=== PATIENT | female | born 1965 | race Caucasian/White ===

== ENCOUNTER 2016-08-27 21:25 | Inpatient (IN) | payer MEDICAID, OTHER ==
[2016-08-27 22:14] LABS: BASO % 0.3 % (0.0-2.0); EOS # 0.1 K/uL (0.0-0.7); EOS % 1.9 % (0.0-4.0); HEMOGLOBIN 12.7 g/dL (11.0-16.0); LYMPH # 3.2 K/uL (1.0-4.3); LYMPH % 49.4 % (20.0-40.0); MEAN CELL VOLUME 91.4 fL (81.0-99.0); MEAN CORPUSCULAR HEMOGLOBIN 30.5 pg (27.0-31.0); MEAN CORPUSCULAR HGB CONC 33.3 g/dL (33.0-37.0); MONO # 0.7 K/uL (0.0-0.8); NEUT # 2.5 K/uL (1.8-7.0); NEUT % 38.4 % (50.0-75.0); NRBC % 0.1 % (0.0-2.0); RBC 4.17 Mil/uL (3.80-5.20); RED CELL DISTRIBUTION WIDTH 13.1 % (11.5-14.5); WHITE BLOOD COUNT 6.5 K/uL (4.8-10.8)
[2016-08-27 22:20] LABS: HCG,QUALITATIVE URINE NEGATIVE (NEGATIVE)
--- NOTE | 2016-08-27 22:20 | C.PDOC ---
History Of Present Illness 51 year old female with a Hx of hyperthyroidism, hypertensionwho presents to the ER with a complaint of palpitations and chest painthat began this afternoon. Denies fever or other physical complaints. Time Seen by Provider: 08/27/16 21:48 Chief Complaint (Nursing): Palpitations History Per: Patient History/Exam Limitations: no limitations Onset/Duration Of Symptoms: Hrs Current Symptoms Are (Timing): Still Present Associated Symptoms: denies: Chest Pain, Dyspnea, Dizziness, Headache Quality Of Symptoms: Rapid Heart Rate Exacerbating Factor(s): Pos: None Recent travel outside of the [place]: No Past Medical History Reviewed: Historical Data, Nursing Documentation, Vital Signs Vital Signs: Last Vital Signs Temp 98 F 08/30/16 07:00 Pulse 69 08/30/16 07:00 Resp 20 08/30/16 07:00 BP 141/88 08/30/16 07:00 Pulse Ox 97 08/30/16 07:00 - Medical History PMH: HTN, Hyperthyroidism Surgical History: No Surg Hx Family History: States: Unknown Family Hx - Social History Hx Tobacco Use: No Hx Alcohol Use: No Hx Substance Use: No - Immunization History Hx Tetanus Toxoid Vaccination: Yes Hx Influenza Vaccination: Yes (2016) Hx Pneumococcal Vaccination: No Review Of Systems Except As Marked, All Systems Reviewed And Found Negative. Constitutional: Negative for: Fever Cardiovascular: Positive for: Palpitations. Negative for: Chest Pain Respiratory: Negative for: Cough, Shortness of Breath, Wheezing Gastrointestinal: Negative for: Vomiting, Abdominal Pain Neurological: Negative for: Weakness, Numbness Physical Exam - Physical Exam Appears: Non-toxic, No Acute Distress Skin: Normal Color, Warm, Dry Head: Atraumatic, Normacephalic Oral Mucosa: Moist Chest: Symmetrical, No Tenderness Cardiovascular: Rhythm Regular, No Murmur Respiratory: Normal Breath Sounds, No Rales, No Rhonchi, No Wheezing Gastrointestinal/Abdominal: Soft, No Tenderness Neurological/Psych: Oriented x3, Normal Speech, Normal Cognition ED Course And Treatment - Laboratory Results Result Diagrams: 08/30/16 07:08 08/30/16 07:08 O2 Sat by Pulse Oximetry: 100 (Room air) Pulse Ox Interpretation: Normal Medical Decision Making Medical Decision Making: Impression: 51 year old female with palpitationsand chest pain - r/o acs. Plan: * EKG * Blood work * CXR * Urinalysis * * 1200: labs unremakrable. as pt presetns < 6 hrs from onset, will obs for cp. Disposition - Disposition Disposition: HOSPITALIZED Disposition Time: 11:00 Condition: STABLE - Clinical Impression Clinical Impression: Palpitations, Chest pain - Scribe Statement The provider has reviewed the documentation as recorded by the Scribe Jonas Euceda All medical record entries made by the Scribe were at my direction and personally dictated by me. I have reviewed the chart and agree that the record accurately reflects my personal performance of the history, physical exam, medical decision making, and the department course for this patient. I have also personally directed, reviewed, and agree with the discharge instructions and disposition. Decision To Admit - Pt Status Changed To: Hospital Disposition Of: Observation - . Bed Request Type: Telemetry Admitting Physician: Sam Quintero Patient Diagnosis: Palpitations, Chest pain
[2016-08-27 22:22] LABS: SQUAMOUS EPITHIAL 1 /hpf (0-5); URINE BILIRUBIN NEGATIVE (NEGATIVE); URINE BLOOD NEGATIVE (NEGATIVE); URINE CLARITY Clear (Clear); URINE COLOR Yellow (YELLOW); URINE GLUCOSE (UA) NORMAL (Normal); URINE LEUKOCYTE ESTERASE NEG Leu/uL (Negative); URINE NITRATE NEGATIVE (NEGATIVE); URINE PROTEIN NEGATIVE (NEGATIVE); URINE UROBILINOGEN NORMAL mg/dL (0.2-1.0)
[2016-08-27 22:23] LABS: ALBUMIN 3.6 g/dL (3.5-5.0)
[2016-08-27 22:26] LABS: AST/SGOT 26 U/L (14-36); BLOOD UREA NITROGEN 10 mg/dL (7-17); GFR AFRICAN-AMERICAN > 60; GFR NON-AFRICAN AMERICAN > 60
[2016-08-27 22:27] LABS: ALT/SGPT 27 U/L (9-52); CALCIUM 8.8 mg/dl (8.6-10.4)
[2016-08-27 22:40] LABS: PARTIAL THROMBOPLASTIN TIME 29 SECONDS (21-34); PROTHROMBIN TIME 11.3 SECONDS (9.7-12.2)
[2016-08-27 22:41] LABS: D DIMER < 200 ng/mlDDU (0-243)
[2016-08-28] MEDS ORDERED: Enalaprilat 2.5 MG/2 ML IV ONE (00:59)
--- NOTE | 2016-08-28 07:05 | RAD ---
PROCEDURE: CHEST RADIOGRAPH, 1 VIEW HISTORY: chest pain COMPARISON: 06/29/2015 FINDINGS: LUNGS: Mild venous congestion. Prominent productive change at the ends of the 1st ribs. Bibasilar breast and nipple shadows. Right hilar prominence. PLEURA: No pneumothorax or pleural fluid seen. CARDIOVASCULAR: Normal. OSSEOUS STRUCTURES: Degenerative changes. VISUALIZED UPPER ABDOMEN: Normal. OTHER FINDINGS: None. IMPRESSION: Mild venous congestion. Prominent productive change at the ends of the 1st ribs. Bibasilar breast and nipple shadows. Right hilar prominence.
[2016-08-28 07:24] LABS: CK-MB 0.45 ng/mL (0.0-3.38)
[2016-08-28] MEDS: Pantoprazole 40 mg EC Tab PO SCH (09:55)
[2016-08-28] MEDS: Enoxaparin 40 mg Syringe SC SCH (09:55)
[2016-08-28] MEDS ORDERED: Pneumococcal 23-Valent Vaccine IM ONE (10:00)
[2016-08-28 12:04] LABS: CK-MB 0.65 ng/mL (0.0-3.38)
--- NOTE | 2016-08-28 14:59 | CP.PCM.HP ---
Past Patient History - Past Social History Smoking Status: Never Smoked - CARDIAC Hx Hypertension: No - ENDOCRINE/METABOLIC Hx Hyperthyroidism: Yes - MUSCULOSKELETAL/RHEUMATOLOGICAL Hx Falls: No - GASTROINTESTINAL Hx Constipation: Yes - GENITOURINARY/GYNECOLOGICAL Other/Comment: hysterectomy 1998 - PSYCHIATRIC Hx Substance Use: No - SURGICAL HISTORY Hx Hysterectomy: Yes - ANESTHESIA Hx Anesthesia: Yes Hx Anesthesia Reactions: No Meds Allergies/Adverse Reactions: Allergies Allergy/AdvReac Type Severity Reaction Status Date / Time No Known Allergies Allergy Verified 12/23/14 09:04 Physical Exam - Constitutional Appears: Well - Head Exam Head Exam: ATRAUMATIC, NORMAL INSPECTION, NORMOCEPHALIC - Eye Exam Eye Exam: EOMI, Normal appearance, PERRL Pupil Exam: NORMAL ACCOMODATION, PERRL - ENT Exam ENT Exam: Mucous Membranes Moist, Normal Exam - Neck Exam Neck exam: Positive for: Normal Inspection - Respiratory Exam Respiratory Exam: Decreased Breath Sounds - Cardiovascular Exam Cardiovascular Exam: REGULAR RHYTHM, +S1, +S2 - GI/Abdominal Exam GI & Abdominal Exam: Diminished Bowel Sounds, Soft - Rectal Exam Rectal Exam: Deferred Results - Vital Signs Recent Vital Signs: Last Vital Signs Temp 98.2 F 08/28/16 08:52 Pulse 68 08/28/16 11:41 Resp 20 08/28/16 08:52 BP 136/89 08/28/16 08:52 Pulse Ox 97 08/28/16 08:52 - Labs Result Diagrams: 08/27/16 22:09 08/27/16 22:09 Labs: Laboratory Results - last 24 hr 08/28/16 08/28/16 06:59 11:33 Total Creatine Kinase 72 73 CK-MB (Mass) 0.45 0.65 Troponin I, Quant < 0.0120 < 0.0120 TSH 3rd Generation < 0.02 L Assessment & Plan - Assessment and Plan (Free Text) Plan: Aspirin Lovenox Protonix Continue home medication Cardiology follow-up Cardiac enzymes every 8 Increase methimazole to 10 mg p.o. twice daily Free T4 T3 tomorrow morning Endo as needed Patient advised to see black mill operator as an outpatient for possible radio iodine uptake patient is already well known case of hypothyroidism
--- NOTE | 2016-08-28 23:48 | CP.PCM.CON ---
History of Present Illness - History of Present Illness History of Present Illness: Vikki Murry 51-year-old female with past medical history significant for hyperthyroidism and hypertension who presented with complaints of palpitations which started on Monday afternoon around 3:00 pm . According to the patient she took her dose of propanolol but her symptoms got progressively worse for which she came to the ER. According to the patient she has been on propranolol and thyroid medications for the last 8-9 years. She was recently prescribed diuretics by her scrum project manager 1 month ago, but she did not take it. She also has ongoing worsening lower extremity swelling which have been there for the last 7 years worse at the end of the day. 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 According to the patient she denied having any chest pains. She does have 1- 2 pillow orthopnea and does have NYHA functional class I to II dyspnea. She noticed her symptoms of dyspnea on exertion got worse over the course of last day. Review of Systems - Constitutional Constitutional: Fatigue - EENT Eyes: As Per HPI Ears: As Per HPI Nose/Mouth/Throat: As Per HPI - Cardiovascular Cardiovascular: Dyspnea on Exertion, Edema, Leg Edema, Orthopnea, Rapid Heart Rate - Respiratory Respiratory: Dyspnea on Exertion - Gastrointestinal Gastrointestinal: As Per HPI - Genitourinary Genitourinary: As Per HPI - Musculoskeletal Musculoskeletal: As Per HPI - Integumentary Integumentary: As Per HPI - Neurological Neurological: As Per HPI - Psychiatric Psychiatric: As Per HPI - Endocrine Endocrine: Heat Intolorance, Palpitations Past Patient History - Past Medical History & Family History Past Medical History?: Yes Pertinent Family History: She has history of premature coronary artery disease in the family mom had SD at the age of 60 and dad had SD at the age of 42. 9 siblings out of which 2 are brother from motor vehicle accident and sister had HIV. Out of the other 7 siblings will be one sister has history of murmurs. She is with 4 kids in the age of 30 [id number] and 23. - Past Social History Smoking Status: Never Smoked Alcohol: None Drugs: Denies Home Situation {Lives}: With Family - CARDIAC Hx Cardiac Disorders: No Hx Angina: No Hx Atrial Fibrillation: No Hx Cardia Arrhythmia: Yes Hx Circulatory Problems: No Hx Congestive Heart Failure: No Hx Heart Attack: No Hx Hypertension: No Hx Hypotension: No Hx Internal Defibrillator: No Hx Mitral Valve Prolapse: No Hx Pacemaker: No Hx Peripheral Edema: Yes Hx Peripheral Vascular Disease: No - PULMONARY Hx Respiratory Disorders: No Hx Asthma: No Hx Bronchitis: No Hx Lung Cancer: No - ENDOCRINE/METABOLIC Hx Endocrine Disorders: Yes Hx Hyperthyroidism: Yes - MUSCULOSKELETAL/RHEUMATOLOGICAL Hx Falls: No - GASTROINTESTINAL Hx Constipation: Yes - GENITOURINARY/GYNECOLOGICAL Other/Comment: hysterectomy 1999 - PSYCHIATRIC Hx Substance Use: No - SURGICAL HISTORY Hx Hysterectomy: Yes - ANESTHESIA Hx Anesthesia: Yes Hx Anesthesia Reactions: No Meds Allergies/Adverse Reactions: Allergies Allergy/AdvReac Type Severity Reaction Status Date / Time No Known Allergies Allergy Verified 12/23/14 09:04 - Medications Medications: Current Medications Aspirin (Aspirin) 325 mg PO DAILY [facility] Last Admin: 08/28/16 09:55 Dose: 325 mg Enoxaparin Sodium (Lovenox) 40 mg SC DAILY [facility] Last Admin: 08/28/16 09:55 Dose: 40 mg Methimazole (Tapazole) 10 mg PO BID [facility] Last Admin: 08/28/16 17:50 Dose: 10 mg Pantoprazole Sodium (Protonix Ec Tab) 40 mg PO DAILY [facility] Last Admin: 08/28/16 09:55 Dose: 40 mg Propranolol HCl (Inderal) 20 mg PO TID [facility] Last Admin: 08/28/16 17:49 Dose: 20 mg Physical Exam - Constitutional Appears: Well, No Acute Distress - Head Exam Head Exam: ATRAUMATIC, NORMAL INSPECTION, NORMOCEPHALIC - Eye Exam Eye Exam: EOMI, Normal appearance Pupil Exam: NORMAL ACCOMODATION, PERRL - ENT Exam ENT Exam: Mucous Membranes Moist, Normal Exam - Neck Exam Neck exam: Positive for: Normal Inspection - Respiratory Exam Respiratory Exam: Clear to Auscultation Bilateral, NORMAL BREATHING PATTERN - Cardiovascular Exam Cardiovascular Exam: Tachycardia, REGULAR RHYTHM, +S1, +S2, Systolic Murmur - GI/Abdominal Exam GI & Abdominal Exam: Normal Bowel Sounds, Soft - Rectal Exam Rectal Exam: Deferred - Extremities Exam Extremities exam: Positive for: normal capillary refill, normal inspection - Back Exam Back exam: NORMAL INSPECTION - Neurological Exam Neurological exam: Alert, CN II-XII Intact, Oriented x3 - Psychiatric Exam Psychiatric exam: Normal Affect, Normal Mood - Skin Skin Exam: Normal Color, Warm Results - Vital Signs Recent Vital Signs: Last Vital Signs Temp 98 F 08/28/16 16:16 Pulse 61 08/28/16 16:16 Resp 20 08/28/16 16:16 BP 143/85 08/28/16 16:16 Pulse Ox 99 08/28/16 16:16 - Labs Result Diagrams: 08/27/16 22:09 08/27/16 22:09 Labs: Laboratory Results - last 24 hr 08/28/16 08/28/16 06:59 11:33 Total Creatine Kinase 72 73 CK-MB (Mass) 0.45 0.65 Troponin I, Quant < 0.0120 < 0.0120 TSH 3rd Generation < 0.02 L Assessment & Plan (1) Palpitation Assessment and Plan: Etiology of palpitations question secondary to hyperthyroidism versus some underlying atrial arrhythmia. We will continue to monitor patient on telemetry. Continue We will continue home dose of propanolol 20 mg p.o. 3 times daily. Status: Acute (2) SOB (shortness of breath) Assessment and Plan: Etiology of shortness of breath question secondary to underlying diastolic CHF in the setting of tachycardia. Will check echocardiogram. Status: Acute (3) HTN (hypertension) Assessment and Plan: Blood pressure mildly elevated. Continue her on home dose of propranolol. Depending on patient's blood pressure trend will decide if she would benefit from any further medications. Status: Acute (4) Hyperthyroidism Assessment and Plan: Check TSH free T3 and T4. We will also check fasting lipid profile. Status: Acute
[2016-08-29 06:45] LABS: B-TYPE NATRIURETIC PEPTIDE 289 pg/mL (0-450)
[2016-08-29 06:52] LABS: T4 13.6 ug/dL (5.5-11.0)
[2016-08-29 07:06] LABS: T3 2.76 nmol/L (1.49-2.60)
[2016-08-29 08:44] VITALS: RESP 20
[2016-08-29] MEDS: Enoxaparin 40 mg Syringe SC SCH (10:03)
[2016-08-29] MEDS: Pantoprazole 40 mg EC Tab PO SCH (10:03)
[2016-08-29 11:59] LABS: MEAN CELL VOLUME 90.6 fL (81.0-99.0); MEAN CORPUSCULAR HEMOGLOBIN 30.5 pg (27.0-31.0); MEAN CORPUSCULAR HGB CONC 33.7 g/dL (33.0-37.0); MEAN PLATELET VOLUME 9.4 fL (7.2-11.7); RBC 4.59 Mil/uL (3.80-5.20); RED CELL DISTRIBUTION WIDTH 13.1 % (11.5-14.5); WHITE BLOOD COUNT 5.8 K/uL (4.8-10.8)
[2016-08-29 12:07] LABS: ALBUMIN 3.6 g/dL (3.5-5.0)
[2016-08-29 12:10] LABS: GFR AFRICAN-AMERICAN > 60; GFR NON-AFRICAN AMERICAN > 60
[2016-08-29 12:11] LABS: ALB/GLOB RATIO 1.1 (1.0-2.1); ALT/SGPT 32 U/L (9-52); AST/SGOT 26 U/L (14-36); BLOOD UREA NITROGEN 7 mg/dL (7-17); CALCIUM 9.3 mg/dl (8.6-10.4)
--- NOTE | 2016-08-29 13:37 | CARD ---
APPROVED REPORT EKG Measurement Heart [id number] <Conclusion> Normal sinus rhythm Normal ECG
--- NOTE | 2016-08-29 15:26 | CP.PCM.PN ---
Subjective - Date & Time of Evaluation Date of Evaluation: 08/29/16 Time of Evaluation: 13:00 - Subjective Subjective: clinically same Objective - Vital Signs/Intake and Output Vital Signs (last 24 hours): Temp Pulse Resp BP Pulse Ox 98.4 F 66 20 162/95 H 99 08/29/16 15:13 08/29/16 15:13 08/29/16 15:13 08/29/16 15:13 08/29/16 15:13 - Medications Medications: Current Medications Aspirin (Aspirin) 325 mg PO DAILY [facility] Last Admin: 08/29/16 10:03 Dose: 325 mg Enoxaparin Sodium (Lovenox) 40 mg SC DAILY [facility] Last Admin: 08/29/16 10:03 Dose: 40 mg Methimazole (Tapazole) 10 mg PO BID [facility] Last Admin: 08/29/16 10:03 Dose: 10 mg Pantoprazole Sodium (Protonix Ec Tab) 40 mg PO DAILY [facility] Last Admin: 08/29/16 10:03 Dose: 40 mg Propranolol HCl (Inderal) 20 mg PO TID [facility] Last Admin: 08/29/16 14:19 Dose: 20 mg - Labs Labs: 08/29/16 11:49 08/29/16 11:49 PT 11.3 SECONDS (9.7-12.2) 08/27/16 22:25 INR 1.0 08/27/16 22:25 APTT 29 SECONDS (21-34) 08/27/16 22:25 - Constitutional Appears: Well - Head Exam Head Exam: ATRAUMATIC, NORMAL INSPECTION, NORMOCEPHALIC - Eye Exam Eye Exam: EOMI, Normal appearance, PERRL Pupil Exam: NORMAL ACCOMODATION, PERRL - ENT Exam ENT Exam: Mucous Membranes Moist, Normal Exam - Neck Exam Neck Exam: Full ROM, Normal Inspection. absent: Lymphadenopathy - Respiratory Exam Respiratory Exam: Decreased Breath Sounds - Cardiovascular Exam Cardiovascular Exam: REGULAR RHYTHM, +S1, +S2 - GI/Abdominal Exam GI & Abdominal Exam: Soft, Diminished Bowel Sounds - Rectal Exam Rectal Exam: Deferred
--- NOTE | 2016-08-29 17:07 | CP.PCM.PN ---
Subjective - Date & Time of Evaluation Date of Evaluation: 08/29/16 Time of Evaluation: 17:25 - Subjective Subjective: feeling better HR stable Objective - Vital Signs/Intake and Output Vital Signs (last 24 hours): Temp Pulse Resp BP Pulse Ox 98.4 F 63 20 162/95 H 99 08/29/16 15:13 08/29/16 16:00 08/29/16 15:13 08/29/16 15:13 08/29/16 15:13 - Medications Medications: Current Medications Aspirin (Aspirin) 325 mg PO DAILY [facility] Last Admin: 08/29/16 10:03 Dose: 325 mg Enoxaparin Sodium (Lovenox) 40 mg SC DAILY [facility] Last Admin: 08/29/16 10:03 Dose: 40 mg Methimazole (Tapazole) 10 mg PO BID [facility] Last Admin: 08/29/16 10:03 Dose: 10 mg Pantoprazole Sodium (Protonix Ec Tab) 40 mg PO DAILY [facility] Last Admin: 08/29/16 10:03 Dose: 40 mg Propranolol HCl (Inderal) 20 mg PO TID [facility] Last Admin: 08/29/16 14:19 Dose: 20 mg - Labs Labs: 08/29/16 11:49 08/29/16 11:49 PT 11.3 SECONDS (9.7-12.2) 08/27/16 22:25 INR 1.0 08/27/16 22:25 APTT 29 SECONDS (21-34) 08/27/16 22:25 - Constitutional Appears: Well, No Acute Distress - Head Exam Head Exam: ATRAUMATIC, NORMAL INSPECTION, NORMOCEPHALIC - Eye Exam Eye Exam: EOMI, Normal appearance, PERRL Pupil Exam: NORMAL ACCOMODATION - ENT Exam ENT Exam: Mucous Membranes Moist, Normal Exam - Neck Exam Neck Exam: Full ROM, Normal Inspection - Respiratory Exam Respiratory Exam: Clear to Ausculation Bilateral, NORMAL BREATHING PATTERN - Cardiovascular Exam Cardiovascular Exam: REGULAR RHYTHM, +S1, +S2. absent: Murmur - GI/Abdominal Exam GI & Abdominal Exam: Soft, Normal Bowel Sounds. absent: Tenderness - Rectal Exam Rectal Exam: Deferred - Extremities Exam Extremities Exam: Full ROM, Normal Capillary Refill, Normal Inspection. absent : Joint Swelling, Pedal Edema - Back Exam Back Exam: NORMAL INSPECTION - Neurological Exam Neurological Exam: Alert, Awake, CN II-XII Intact, Normal Gait, Oriented x3 - Psychiatric Exam Psychiatric exam: Normal Affect, Normal Mood - Skin Skin Exam: Intact, Normal Color, Warm Assessment and Plan (1) Palpitation Assessment & Plan: secondary to hyperthyroidism HR stable echo reviewed - normal LVEF Status: Acute (2) SOB (shortness of breath) Assessment & Plan: 2' to bronchospasm from hyperthyroidism cont to monitor outpt ETT Status: Acute (3) HTN (hypertension) Assessment & Plan: BP stable cont propranolol Status: Acute (4) Hyperthyroidism Assessment & Plan: uncontrolled methimazole to be adjusted per endo Status: Acute
[2016-08-29] MEDS ORDERED: Potassium Chloride 20 mEq ER Tab PO STA (19:34)
--- NOTE | 2016-08-29 19:40 | CP.PCM.PN ---
<Any Lopez - Last Filed: 08/29/16 19:34> Subjective - Date & Time of Evaluation Date of Evaluation: 08/29/16 Time of Evaluation: 19:34 - Subjective Subjective: PGY2 progress note for Dr. Quintero Pt is seen and examined at bedside. No acute events overnight. Patient denies having any CP, SOB, abd pain, N/V/D/C, palpitations. Patient is tolerating diet and having regular BMs. 12 point ros are negative except for the above mentioned. Objective - Vital Signs/Intake and Output Vital Signs (last 24 hours): Temp Pulse Resp BP Pulse Ox 98.4 F 63 20 162/95 H 99 08/29/16 15:13 08/29/16 16:00 08/29/16 15:13 08/29/16 15:13 08/29/16 15:13 - Medications Medications: Current Medications Aspirin (Aspirin) 325 mg PO DAILY [facility] Last Admin: 08/29/16 10:03 Dose: 325 mg Enoxaparin Sodium (Lovenox) 40 mg SC DAILY [facility] Last Admin: 08/29/16 10:03 Dose: 40 mg Methimazole (Tapazole) 10 mg PO BID [facility] Last Admin: 08/29/16 17:09 Dose: 10 mg Pantoprazole Sodium (Protonix Ec Tab) 40 mg PO DAILY [facility] Last Admin: 08/29/16 10:03 Dose: 40 mg Propranolol HCl (Inderal) 20 mg PO TID [facility] Last Admin: 08/29/16 17:10 Dose: 20 mg - Labs Labs: 08/29/16 11:49 08/29/16 11:49 PT 11.3 SECONDS (9.7-12.2) 08/27/16 22:25 INR 1.0 08/27/16 22:25 APTT 29 SECONDS (21-34) 08/27/16 22:25 - Constitutional Appears: Non-toxic, No Acute Distress - Head Exam Head Exam: ATRAUMATIC - Eye Exam Eye Exam: EOMI - ENT Exam ENT Exam: Mucous Membranes Moist - Respiratory Exam Respiratory Exam: Clear to Ausculation Bilateral. absent: Rales, Rhonchi, Wheezes - Cardiovascular Exam Cardiovascular Exam: REGULAR RHYTHM. absent: Gallop, Rubs, +S1, +S2, Murmur - GI/Abdominal Exam GI & Abdominal Exam: Soft, Normal Bowel Sounds. absent: Distended, Firm, Guarding, Rigid, Tenderness, Organomegaly - Extremities Exam Extremities Exam: absent: Pedal Edema, Tenderness - Neurological Exam Neurological Exam: Alert, Awake, Oriented x3 - Psychiatric Exam Psychiatric exam: Normal Affect, Normal Mood - Skin Skin Exam: Dry, Intact, Normal Color, Warm Assessment and Plan - Assessment and Plan (Free Text) Assessment: 51 jhonny old female with past medical history of hyperthyroidism currently on methamazole and HTN is admitted for CP and palpitations. Troponins x 3 were negative. CXR on admission showed mild venous congestions. Cardiology was consulted and stated that palpitations are likely due to hyperthyroidism. On blood work, TSH was found to be <.02 and T4 was 13.6, free T4 was 1.96. Hyperthyroidism - Continue Methimazole 10 mg po BID and Propanolol 20 mg po TID - Pt follows with emt paramedic Dr. Diane outpatient CP r/o ACS - troponin x [address] changes on EKG so ACS less likely Prophylaxis - protonix - lovenox Case discussed with attending, Dr. Quintero <Sam Quintero S - Last Filed: 08/29/16 20:12> Objective - Vital Signs/Intake and Output Vital Signs (last 24 hours): Temp Pulse Resp BP Pulse Ox 98.4 F 63 20 162/95 H 99 08/29/16 15:13 08/29/16 16:00 08/29/16 15:13 08/29/16 15:13 08/29/16 15:13 - Medications Medications: Current Medications Aspirin (Aspirin) 325 mg PO DAILY [facility] Last Admin: 08/29/16 10:03 Dose: 325 mg Enoxaparin Sodium (Lovenox) 40 mg SC DAILY [facility] Last Admin: 08/29/16 10:03 Dose: 40 mg Methimazole (Tapazole) 10 mg PO BID [facility] Last Admin: 08/29/16 17:09 Dose: 10 mg Pantoprazole Sodium (Protonix Ec Tab) 40 mg PO DAILY [facility] Last Admin: 08/29/16 10:03 Dose: 40 mg Propranolol HCl (Inderal) 20 mg PO TID [facility] Last Admin: 08/29/16 17:10 Dose: 20 mg - Labs Labs: 08/29/16 11:49 08/29/16 11:49 PT 11.3 SECONDS (9.7-12.2) 08/27/16 22:25 INR 1.0 08/27/16 22:25 APTT 29 SECONDS (21-34) 08/27/16 22:25 Attending/Attestation - Attestation I have personally seen and examined this patient.: Yes I have fully participated in the care of the patient.: Yes I have reviewed all pertinent clinical information, including history, physical exam and plan: Yes Notes (Text): 08/29/16 20:09 Patient is admitted with the chest pain and palpitations thyroid level is very low patient is already on methimazole increased cardiology follow-up
[2016-08-30 07:30] LABS: HEMOGLOBIN 14.5 g/dL (11.0-16.0); MEAN CELL VOLUME 90.6 fL (81.0-99.0); MEAN CORPUSCULAR HEMOGLOBIN 30.6 pg (27.0-31.0); MEAN CORPUSCULAR HGB CONC 33.8 g/dL (33.0-37.0); RBC 4.75 Mil/uL (3.80-5.20); RED CELL DISTRIBUTION WIDTH 12.8 % (11.5-14.5); WHITE BLOOD COUNT 5.6 K/uL (4.8-10.8)
[2016-08-30 07:46] LABS: ALBUMIN 3.9 g/dL (3.5-5.0)
[2016-08-30 07:49] LABS: GFR AFRICAN-AMERICAN > 60; GFR NON-AFRICAN AMERICAN > 60
[2016-08-30 07:50] LABS: ALB/GLOB RATIO 1.1 (1.0-2.1); ALT/SGPT 35 U/L (9-52); AST/SGOT 31 U/L (14-36); BLOOD UREA NITROGEN 10 mg/dL (7-17); CALCIUM 9.7 mg/dl (8.6-10.4)
[2016-08-30 08:16] LABS: T4 16.4 ug/dL (5.5-11.0)
[2016-08-30 08:21] VITALS: BP 141/88; PULSE 69; TEMP 98
[2016-08-30] MEDS: Pantoprazole 40 mg EC Tab PO SCH (09:29)
[2016-08-30] MEDS: Enoxaparin 40 mg Syringe SC SCH (09:30)
--- NOTE | 2016-08-30 10:08 | CP.PCM.PN ---
Subjective - Date & Time of Evaluation Date of Evaluation: 08/30/16 Time of Evaluation: 11:30 - Subjective Subjective: had 3 episodes of palpitations today Objective - Vital Signs/Intake and Output Vital Signs (last 24 hours): Temp Pulse Resp BP Pulse Ox 98 F 69 20 141/88 97 08/30/16 07:00 08/30/16 07:00 08/30/16 07:00 08/30/16 07:00 08/30/16 07:00 - Medications Medications: Current Medications Aspirin (Aspirin) 325 mg PO DAILY [facility] Last Admin: 08/30/16 09:29 Dose: 325 mg Enoxaparin Sodium (Lovenox) 40 mg SC DAILY [facility] Last Admin: 08/30/16 09:30 Dose: 40 mg Methimazole (Tapazole) 10 mg PO BID [facility] Last Admin: 08/30/16 09:29 Dose: 10 mg Pantoprazole Sodium (Protonix Ec Tab) 40 mg PO DAILY [facility] Last Admin: 08/30/16 09:29 Dose: 40 mg Propranolol HCl (Inderal) 20 mg PO TID [facility] Last Admin: 08/30/16 09:29 Dose: 20 mg - Labs Labs: 08/30/16 07:08 08/30/16 07:08 PT 11.3 SECONDS (9.7-12.2) 08/27/16 22:25 INR 1.0 08/27/16 22:25 APTT 29 SECONDS (21-34) 08/27/16 22:25 - Constitutional Appears: Well, No Acute Distress - Head Exam Head Exam: ATRAUMATIC, NORMAL INSPECTION, NORMOCEPHALIC - Eye Exam Eye Exam: EOMI, Normal appearance, PERRL Pupil Exam: NORMAL ACCOMODATION, PERRL - ENT Exam ENT Exam: Mucous Membranes Moist, Normal Exam - Neck Exam Neck Exam: Full ROM, Normal Inspection. absent: Lymphadenopathy - Respiratory Exam Respiratory Exam: Clear to Ausculation Bilateral, NORMAL BREATHING PATTERN - Cardiovascular Exam Cardiovascular Exam: REGULAR RHYTHM, +S1, +S2, Murmur - GI/Abdominal Exam GI & Abdominal Exam: Soft, Normal Bowel Sounds. absent: Tenderness - Rectal Exam Rectal Exam: Deferred - Extremities Exam Extremities Exam: Full ROM, Normal Capillary Refill, Normal Inspection. absent : Joint Swelling, Pedal Edema - Back Exam Back Exam: NORMAL INSPECTION - Neurological Exam Neurological Exam: Alert, Awake, CN II-XII Intact, Normal Gait, Oriented x3 - Psychiatric Exam Psychiatric exam: Normal Affect, Normal Mood - Skin Skin Exam: Dry, Intact, Normal Color, Warm Assessment and Plan (1) Palpitation Assessment & Plan: 2' to hyperthyroidism will change propranolol to metoprolol in am cont to monitor on telemetry Status: Acute (2) SOB (shortness of breath) Assessment & Plan: 2' to hyperthyroid induced bronchospasm will need ischemic evaluation once thyroid function stable Status: Acute (3) HTN (hypertension) Assessment & Plan: bp stable cont current rx Status: Chronic (4) Hyperthyroidism Assessment & Plan: rx per endo Status: Chronic
--- NOTE | 2016-08-30 11:44 | CP.PCM.PN ---
Subjective - Date & Time of Evaluation Date of Evaluation: 08/30/16 Time of Evaluation: 13:00 - Subjective Subjective: clinically same Objective - Vital Signs/Intake and Output Vital Signs (last 24 hours): Temp Pulse Resp BP Pulse Ox 98 F 69 20 141/88 97 08/30/16 07:00 08/30/16 07:00 08/30/16 07:00 08/30/16 07:00 08/30/16 07:00 - Medications Medications: Current Medications Aspirin (Aspirin) 325 mg PO DAILY [facility] Last Admin: 08/30/16 09:29 Dose: 325 mg Enoxaparin Sodium (Lovenox) 40 mg SC DAILY [facility] Last Admin: 08/30/16 09:30 Dose: 40 mg Methimazole (Tapazole) 10 mg PO BID [facility] Last Admin: 08/30/16 09:29 Dose: 10 mg Pantoprazole Sodium (Protonix Ec Tab) 40 mg PO DAILY [facility] Last Admin: 08/30/16 09:29 Dose: 40 mg Propranolol HCl (Inderal) 20 mg PO TID [facility] Last Admin: 08/30/16 09:29 Dose: 20 mg - Labs Labs: 08/30/16 07:08 08/30/16 07:08 PT 11.3 SECONDS (9.7-12.2) 08/27/16 22:25 INR 1.0 08/27/16 22:25 APTT 29 SECONDS (21-34) 08/27/16 22:25 - Constitutional Appears: Well - Head Exam Head Exam: ATRAUMATIC, NORMAL INSPECTION, NORMOCEPHALIC - Eye Exam Eye Exam: EOMI, Normal appearance, PERRL Pupil Exam: NORMAL ACCOMODATION, PERRL - ENT Exam ENT Exam: Mucous Membranes Moist, Normal Exam - Neck Exam Neck Exam: Full ROM, Normal Inspection. absent: Lymphadenopathy - Respiratory Exam Respiratory Exam: Decreased Breath Sounds - Cardiovascular Exam Cardiovascular Exam: REGULAR RHYTHM, +S1, +S2 - GI/Abdominal Exam GI & Abdominal Exam: Soft, Diminished Bowel Sounds - Rectal Exam Rectal Exam: Deferred
--- NOTE | 2016-08-30 12:42 | CP.PCM.PN ---
Subjective - Date & Time of Evaluation Date of Evaluation: 08/30/16 Time of Evaluation: 12:42 - Subjective Subjective: PT SEEN BY DR. WILL TODAY AND CLEARED FOR D/C HOME. TO CONTINUE CURRENT DOSES AND FREQUENCIES OF MEDS. TO F/U WITH OWN STITCH CLEANER. NO FURTHER ORDERS. Objective - Vital Signs/Intake and Output Vital Signs (last 24 hours): Temp Pulse Resp BP Pulse Ox 98 F 69 20 141/88 97 08/30/16 07:00 08/30/16 07:00 08/30/16 07:00 08/30/16 07:00 08/30/16 07:00 - Medications Medications: Current Medications Aspirin (Aspirin) 325 mg PO DAILY [facility] Last Admin: 08/30/16 09:29 Dose: 325 mg Enoxaparin Sodium (Lovenox) 40 mg SC DAILY [facility] Last Admin: 08/30/16 09:30 Dose: 40 mg Methimazole (Tapazole) 10 mg PO BID [facility] Last Admin: 08/30/16 09:29 Dose: 10 mg Pantoprazole Sodium (Protonix Ec Tab) 40 mg PO DAILY [facility] Last Admin: 08/30/16 09:29 Dose: 40 mg Pneumococcal Polyvalent Vaccine (Pneumovax 23 Vaccine) 0.5 ml IM .ONCE ONE Stop: 08/31/16 10:01 Propranolol HCl (Inderal) 20 mg PO TID [facility] Last Admin: 08/30/16 09:29 Dose: 20 mg - Labs Labs: 08/30/16 07:08 08/30/16 07:08 PT 11.3 SECONDS (9.7-12.2) 08/27/16 22:25 INR 1.0 08/27/16 22:25 APTT 29 SECONDS (21-34) 08/27/16 22:25
--- NOTE | 2016-08-30 20:38 | CP.PCM.PN ---
Subjective - Date & Time of Evaluation Date of Evaluation: 08/30/16 Time of Evaluation: 11:12 - Subjective Subjective: PGY 2 Med Note- Dr. Will's service Pt seen and examined in no acute distress. Patient states that she feels better today. She admits to intermittent palpitations. She denies subjective fevers ro chills, chest pain, headaches, visual changes, shortness of breath, abdominal pain, bowel changes, paresthesias, trouble ambulating or urinary discomfort at this time. Patient to be discharged today. Objective - Vital Signs/Intake and Output Vital Signs (last 24 hours): Temp Pulse Resp BP Pulse Ox 98 F 69 20 141/88 97 08/30/16 07:00 08/30/16 07:00 08/30/16 07:00 08/30/16 07:00 08/30/16 07:00 - Labs Labs: 08/30/16 07:08 08/30/16 07:08 PT 11.3 SECONDS (9.7-12.2) 08/27/16 22:25 INR 1.0 08/27/16 22:25 APTT 29 SECONDS (21-34) 08/27/16 22:25 - Constitutional Appears: Non-toxic, No Acute Distress - Head Exam Head Exam: ATRAUMATIC, NORMAL INSPECTION, NORMOCEPHALIC - Eye Exam Eye Exam: EOMI, Normal appearance, PERRL Pupil Exam: NORMAL ACCOMODATION, PERRL - ENT Exam ENT Exam: Mucous Membranes Moist, Normal Exam - Neck Exam Neck Exam: Full ROM - Respiratory Exam Respiratory Exam: NORMAL BREATHING PATTERN. absent: Wheezes - Cardiovascular Exam Cardiovascular Exam: Tachycardia, +S1, +S2 - GI/Abdominal Exam GI & Abdominal Exam: Soft, Normal Bowel Sounds - Extremities Exam Extremities Exam: Full ROM, Normal Capillary Refill - Back Exam Back Exam: Full ROM - Neurological Exam Neurological Exam: Alert, Awake, CN II-XII Intact, Normal Gait, Oriented x3 - Psychiatric Exam Psychiatric exam: Normal Affect, Normal Mood - Skin Skin Exam: Dry, Intact, Normal Color, Warm Assessment and Plan (1) Hyperthyroidism Status: Chronic (2) Intermittent palpitations Status: Acute (3) HTN (hypertension) Status: Chronic (4) SOB (shortness of breath) Status: Acute (5) Prophylactic measure Status: Acute - Assessment and Plan (Free Text) Assessment: Chest Pain r/o ACS Status:Resolved - troponin x [address] changes on EKG so ACS less likely Intermittent palpitations Status: Acute - Palpitations noted - Continue Methimazole 10 mg po BID and Propanolol 20 mg po TID - Pt follows with stockroom clerk Dr. Diane outpatient HTN (hypertension) Status: Acute -Continue Inderal -BP stable Hyperthyroidism Status: Acute - Palpitations noted - Continue Methimazole 10 mg po BID and Propanolol 20 mg po TID - Pt follows with stockroom clerk Dr. Diane outpatient SOB (shortness of breath) Status: Acute Continue to monitor. Secondary to bronchospasm from hyperthyroidism Prophylactic measure Status: Acute - Protonix - Lovenox Patient to be discharged Case discussed with attending, Dr. Will PT SEEN BY DR. WILL TODAY AND CLEARED FOR D/C HOME. TO CONTINUE CURRENT DOSES AND FREQUENCIES OF MEDS. TO F/U WITH OWN PATROL MAN. NO FURTHER ORDERS.
[2016-08-31 09:10] VITALS: O2SAT 100
[2016-08-31] MEDS ORDERED: Pneumococcal 23-Valent Vaccine IM ONE (10:00)
--- NOTE | 2016-09-01 10:28 | CARD ---
APPROVED REPORT EXAM: Two-dimensional and M-mode echocardiogram with Doppler and color Doppler. Other Information Quality : GoodRhythm : NSR INDICATION Palpitations sob RISK FACTORS Hypertension 2D DIMENSIONS IVSd0.9 (0.7-1.1cm)Aortic Root (2D)3.4 (2.0-3.7cm) LVDd4.6 (3.9-5.9cm)PWd0.9 (0.7-1.1cm) LVDs3.0 (2.5-4.0cm)FS (%) 35.2 % LVEF (%)64.6 (>50%) M-Mode DIMENSIONS RVDd2.41 (2.1-3.2cm)Left Atrium (MM)3.84 (2.5-4.0cm) IVSd1.07 (0.7-1.1cm)Aortic Root2.86 (2.2-3.7cm) LVDd5.01 (4.0-5.6cm)Aortic Cusp Exc.2.11 (1.5-2.0cm) PWd0.98 (0.7-1.1cm)FS (%) 42 % LVDs2.90 (2.0-3.8cm)LVEF (%)73 (>50%) Aortic Valve AI P 1/2 [id number] Mitral Valve MV E Nqrnkesy45.4cm/sMV A Nczxnxqa60.8cm/sE/A ratio1.0 TDI E/Lateral E'0.0E/Medial E'0.0 Tricuspid Valve TR Peak [id number]/sTR Peak Gr.[id number] LEFT VENTRICLE The left ventricle is normal size. There is normal left ventricular wall thickness. The left ventricular function is normal. The left ventricular ejection fraction is within the normal range. No regional wall motion abnormalities noted. Transmitral Doppler flow pattern is Grade I-abnormal relaxation pattern. No left ventricle thrombus noted on this study. There is no ventricular septal defect visualized. There is no left ventricular aneurysm. There is no mass noted in the left ventricle. RIGHT VENTRICLE The right ventricle is normal size. There is normal right ventricular wall thickness. The right ventricular systolic function is normal. ATRIA The left atrium size is normal. The right atrium size is normal. The interatrial septum is intact with no evidence for an atrial septal defect. AORTIC VALVE The aortic valve is normal in structure. There is mild aortic regurgitation. There is no aortic valvular stenosis. There is no aortic valvular vegetation. MITRAL VALVE The mitral valve is normal in structure. There is no evidence of mitral valve prolapse. There is no mitral valve stenosis. Mitral regurgitation is mild TRICUSPID VALVE The tricuspid valve is normal in structure. There is mild to moderate tricuspid regurgitation. There is no tricuspid valve prolapse or vegetation. There is no tricuspid valve stenosis. PULMONIC VALVE The pulmonary valve is normal in structure. There is mild pulmonic valvular regurgitation. There is no pulmonic valvular stenosis. GREAT VESSELS The aortic root is normal in size. The ascending aorta is normal in size. The pulmonary artery is normal. The IVC is normal in size and collapses >50% with inspiration. PERICARDIAL EFFUSION The pericardium appears normal. There is no pleural effusion. <Conclusion> The left ventricular ejection fraction is within the normal range. Transmitral Doppler flow pattern is Grade I-abnormal relaxation pattern. There is mild aortic regurgitation. Mitral regurgitation is mild There is mild to moderate tricuspid regurgitation. There is mild pulmonic valvular regurgitation.
[2016-09-01 20:04] LABS: TSI 579 % baseline (<140)
== END 2016-08-30 14:27 | disposition home or self-care (01) | DRG 301 ==
LOC: C.ER 21:25 → C.9E 23:10 → C.6T 23:42 → OBSVTOIN 08-29 19:01
PROVIDERS: ADMIT Internal Medicine Nephrology; ATTEND Internal Medicine Nephrology
DX: E05.90 Thyrotoxicosis, unspecified without thyrotoxic crisis or storm (principal); J98.01 Acute bronchospasm; I10 Essential (primary) hypertension; R00.2 Palpitations; R07.89 Other chest pain; Z90.710 Acquired absence of both cervix and uterus

== ENCOUNTER 2018-05-19 00:26 | Inpatient (IN) | payer OTHER ==
--- NOTE | 2018-05-19 01:32 | C.PDOC ---
History Of Present Illness 52 y/o female pt with hx of HTN, hyperthyroidism and family hx of cardiac problems presents to the ER c/o chest pain for x1.5 days ago. Pt reports chest pain radiates to the upper left posterior shoulder. Pt notes pain is worse when taking a deep breath. Pt took an aspirin this morning. Pt denies radiation to the back, SOB, leg swelling, headache and abdominal pain. Time Seen by Provider: 05/19/18 01:31 Chief Complaint (Nursing): Chest Pain History Per: Patient History/Exam Limitations: no limitations Onset/Duration Of Symptoms: Days (1.5) Current Symptoms Are (Timing): Still Present Past Medical History Reviewed: Historical Data, Nursing Documentation, Vital Signs Vital Signs: Last Vital Signs Temp 98.1 F 05/19/18 00:38 Pulse 71 05/19/18 00:38 Resp 16 05/19/18 00:38 BP 183/117 H 05/19/18 00:38 Pulse Ox 100 05/19/18 00:38 - Medical History PMH: Cardia Arrhythmia, HTN, Hyperthyroidism, Peripheral Edema Family History: States: Unknown Family Hx - Social History Hx Tobacco Use: No Hx Alcohol Use: No Hx Substance Use: No - Immunization History Hx Tetanus Toxoid Vaccination: Yes Hx Influenza Vaccination: Yes (2016) Hx Pneumococcal Vaccination: No Review Of Systems Cardiovascular: Positive for: Chest Pain Respiratory: Negative for: Shortness of Breath Gastrointestinal: Negative for: Abdominal Pain Musculoskeletal: Positive for: Shoulder Pain (upper left posterior; radiated from chest pain ). Negative for: Back Pain, Other (leg swelling ) Physical Exam - Physical Exam Appears: Non-toxic, No Acute Distress Skin: Normal Color, Warm, Dry Head: Atraumatic, Normacephalic Eye(s): bilateral: Normal Inspection, PERRL, EOMI Nose: Normal Oral Mucosa: Moist Neck: Trachea Midline, Supple, Other (no meningeal signs; negative kernig's and brudzinski's) Chest: Symmetrical Cardiovascular: Rhythm Regular, No Friction Rub Respiratory: No Rales, No Rhonchi, No Wheezing Gastrointestinal/Abdominal: Soft, No Tenderness Extremity: Bilateral: Atraumatic, Normal Color And Temperature, Normal ROM Neurological/Psych: Oriented x3, Normal Speech ED Course And Treatment - Laboratory Results Result Diagrams: 05/19/18 01:31 05/19/18 01:31 ECG: Interpreted By Me, Viewed By Me ECG Rhythm: Sinus Rhythm ECG Interpretation: Normal Interpretation Of ECG: no STEMI Rate From EC O2 Sat by Pulse Oximetry: 100 (RA) Pulse Ox Interpretation: Normal Medical Decision Making Medical Decision Makin yr old F w/ hx of HTN, family hx of heart issues p/w chest pain. PT notes taking ASA already today. PLeuritic type chest pain and somewhat typical / class ic chest pain without diaphoresis. Likely moderate heart score. Will seek CTPE rule out given pleurtic pain EK Trop: 0 Story: 1 RF: 2 Age: 1 plans: -- chem labs -- blood work [id number] kaitlynn accepted trop labs unremakrable pt in NAD, agreeable to plan pending CT pe reading [id number] CTPE negative Disposition - Disposition Disposition Time: 05:00 Condition: STABLE - Clinical Impression Clinical Impression: Chest pain - Scribe Statement The provider has reviewed the documentation as recorded by the Scribe Kenisha Weir Provider Attestation: All medical record entries made by the Scribe were at my direction and personally dictated by me. I have reviewed the chart and agree that the record accurately reflects my personal performance of the history, physical exam, medical decision making, and the department course for this patient. I have also personally directed, reviewed, and agree with the discharge instructions and disposition.
[2018-05-19 01:37] LABS: BASO % 0.6 % (0.0-2.0); EOS # 0.1 K/uL (0.0-0.7); EOS % 1.6 % (0.0-4.0); HEMOGLOBIN 13.9 g/dL (11.0-16.0); LYMPH # 3.6 K/uL (1.0-4.3); LYMPH % 43.4 % (20.0-40.0); MEAN CELL VOLUME 96.7 fL (81.0-99.0); MEAN CORPUSCULAR HGB CONC 34.1 g/dL (33.0-37.0); MEAN PLATELET VOLUME 8.8 fL (7.2-11.7); MONO # 0.8 K/uL (0.0-0.8); MONO % 9.2 % (0.0-10.0); NEUT # 3.7 K/uL (1.8-7.0); NEUT % 45.2 % (50.0-75.0); RBC 4.21 Mil/uL (3.80-5.20); RED CELL DISTRIBUTION WIDTH 13.4 % (11.5-14.5); WHITE BLOOD COUNT 8.2 K/uL (4.8-10.8)
[2018-05-19 01:48] LABS: ALB/GLOB RATIO 1.4 (1.0-2.1); ALBUMIN 4.3 g/dL (3.5-5.0); BLOOD UREA NITROGEN 8 mg/dL (7-17); CALCIUM 9.4 mg/dl (8.6-10.4); GFR NON-AFRICAN AMERICAN > 60
[2018-05-19 01:49] LABS: ALT/SGPT 13 U/L (9-52); AST/SGOT 26 U/L (14-36)
[2018-05-19] MEDS ORDERED: Iodixanol 320 MG/ML 100 ML BOTTLE IV ONE (04:30)
[2018-05-19] MEDS: Enoxaparin 40 mg Syringe SC SCH (09:11)
--- NOTE | 2018-05-19 13:01 | CT ---
Date of service: 05/19/2018 PROCEDURE: CT Chest with contrast (Pulmonary Angiogram) HISTORY: cp COMPARISON: None available. TECHNIQUE: Axial computed tomography images were obtained of the chest in the pulmonary arterial phase of enhancement. Coronal and sagittal reformatted images were created and reviewed. Intravenous contrast dose: 100 mL of Visipaque 320 intravenously. Radiation dose: Total exam DLP = 611.75 mGy-cm. This CT exam was performed using one or more of the following dose reduction techniques: Automated exposure control, adjustment of the mA and/or kV according to patient size, and/or use of iterative reconstruction technique. FINDINGS: PULMONARY ARTERIES: No evidence of filling defect in the visualized pulmonary arteries to suggest acute pulmonary embolus. AORTA: No acute findings. No thoracic aortic aneurysm. No aortic atherosclerotic calcification or mural plaque present. LUNGS: Mild pulmonary vascular congestion noted. There is a 6 millimeter nodule at the anterior aspect of the right lung base. PLEURAL SPACES: Unremarkable. No effusion or pneumothorax. HEART: The heart is mildly enlarged. No evidence of pericardial effusion. LYMPH NODES: No lymphadenopathy. BONES, CHEST WALL: Unremarkable. No fracture or destructive lesion OTHER FINDINGS: Unremarkable. IMPRESSION: No evidence of acute pulmonary embolus. Mild cardiomegaly and mild pulmonary vascular congestion. Preliminary report was submitted by [facility] contains concordant findings.
[2018-05-20 08:05] VITALS: RESP 20
[2018-05-20 08:20] LABS: BASO % 0.3 % (0.0-2.0); EOS # 0.1 K/uL (0.0-0.7); EOS % 1.7 % (0.0-4.0); HEMOGLOBIN 15.3 g/dL (11.0-16.0); LYMPH # 2.4 K/uL (1.0-4.3); LYMPH % 37.9 % (20.0-40.0); MEAN CELL VOLUME 97.3 fL (81.0-99.0); MEAN CORPUSCULAR HEMOGLOBIN 33.7 pg (27.0-31.0); MEAN CORPUSCULAR HGB CONC 34.6 g/dL (33.0-37.0); MEAN PLATELET VOLUME 8.9 fL (7.2-11.7); MONO # 0.5 K/uL (0.0-0.8); MONO % 7.4 % (0.0-10.0); NEUT # 3.4 K/uL (1.8-7.0); NEUT % 52.7 % (50.0-75.0); NRBC % 0.2 % (0.0-2.0); RBC 4.56 Mil/uL (3.80-5.20); RED CELL DISTRIBUTION WIDTH 13.4 % (11.5-14.5); WHITE BLOOD COUNT 6.4 K/uL (4.8-10.8)
[2018-05-20 09:09] LABS: ALB/GLOB RATIO 1.4 (1.0-2.1); ALBUMIN 4.3 g/dL (3.5-5.0); ALT/SGPT 10 U/L (9-52); AST/SGOT 22 U/L (14-36); BLOOD UREA NITROGEN 9 mg/dL (7-17); CALCIUM 9.5 mg/dl (8.6-10.4); GFR NON-AFRICAN AMERICAN > 60
--- NOTE | 2018-05-20 09:25 | CP.PCM.CON ---
History of Present Illness - History of Present Illness History of Present Illness: 52 y/o female pt with hx of HTN, hyperthyroidism and family hx of cardiac problems presents to the ER c/o chest pain for x1.5 days ago. Pt reports chest pain radiates to the upper left posterior shoulder. Pt notes pain is worse when taking a deep breath. Pt took an aspirin this morning. Pt denies radiation to the back, SOB, leg swelling, headache and abdominal pain. Chief Complaint (Nursing): Chest Pain History Per: Patient History/Exam Limitations: no limitations Onset/Duration Of Symptoms: Days (1.5) Current Symptoms Are (Timing): Still Present Past Medical History Reviewed: Historical Data, Nursing Documentation, Vital Signs Vital Signs: Last Vital Signs Temp 98.1 F 05/19/18 00:38 Pulse 71 05/19/18 00:38 Resp 16 05/19/18 00:38 BP 183/117 H 05/19/18 00:38 Pulse Ox 100 05/19/18 00:38 - Medical History PMH: Cardia Arrhythmia, HTN, Hyperthyroidism, Peripheral Edema Family History: States: Unknown Family Hx - Social History Hx Tobacco Use: No Hx Alcohol Use: No Hx Substance Use: No - Immunization History Hx Tetanus Toxoid Vaccination: Yes Hx Influenza Vaccination: Yes (2016) Hx Pneumococcal Vaccination: No Review Of Systems Cardiovascular: Positive for: Chest Pain Respiratory: Negative for: Shortness of Breath Gastrointestinal: Negative for: Abdominal Pain Musculoskeletal: Positive for: Shoulder Pain (upper left posterior; radiated from chest pain ). Negative for: Back Pain, Other (leg swelling ) Physical Exam - Physical Exam Appears: Non-toxic, No Acute Distress Skin: Normal Color, Warm, Dry Head: Atraumatic, Normacephalic Eye(s): bilateral: Normal Inspection, PERRL, EOMI Nose: Normal Oral Mucosa: Moist Neck: Trachea Midline, Supple, Other (no meningeal signs; negative kernig's and brudzinski's) Chest: Symmetrical Cardiovascular: Rhythm Regular, No Friction Rub Respiratory: No Rales, No Rhonchi, No Wheezing Gastrointestinal/Abdominal: Soft, No Tenderness Extremity: Bilateral: Atraumatic, Normal Color And Temperature, Normal ROM Neurological/Psych: Oriented x3, Normal Speech Assessment and Plan 52 F with hx of HTN, hyperlipidemia and Fhx of heart issues admitted for chest pain Stress test and ECHO Monday prior to discharge Past Patient History - Past Medical History & Family History Past Medical History?: Yes - Past Social History Smoking Status: Never Smoked - CARDIAC Hx Cardia Arrhythmia: Yes Hx Hypertension: Yes Hx Peripheral Edema: Yes - PULMONARY Hx Asthma: No Hx Bronchitis: No - ENDOCRINE/METABOLIC Hx Hyperthyroidism: Yes - MUSCULOSKELETAL/RHEUMATOLOGICAL Hx Falls: No - GASTROINTESTINAL Hx Constipation: Yes - GENITOURINARY/GYNECOLOGICAL Other/Comment: hysterectomy 1998 - PSYCHIATRIC Hx Substance Use: No - SURGICAL HISTORY Hx Surgeries: Yes Hx Hysterectomy: Yes - ANESTHESIA Hx Anesthesia: Yes Hx Anesthesia Reactions: No Meds Allergies/Adverse Reactions: Allergies Allergy/AdvReac Type Severity Reaction Status Date / Time No Known Allergies Allergy Verified 05/19/18 00:42 - Medications Medications: Current Medications Aspirin (Ecotrin) 81 mg PO DAILY [facility] Last Admin: 05/19/18 09:11 Dose: 81 mg Enoxaparin Sodium (Lovenox) 40 mg SC DAILY [facility] Last Admin: 05/19/18 09:11 Dose: 40 mg Losartan Potassium (Cozaar) 25 mg PO DAILY [facility] Last Admin: 05/19/18 14:51 Dose: 25 mg Methimazole (Tapazole) 10 mg PO BID [facility] Last Admin: 05/19/18 18:31 Dose: 10 mg Pneumococcal Polyvalent Vaccine (Pneumovax 23 Vaccine) 0.5 ml IM .ONCE ONE Stop: 05/21/18 10:01 Propranolol HCl (Inderal) 20 mg PO BID [facility] Last Admin: 05/19/18 18:31 Dose: 20 mg Rosuvastatin Calcium (Crestor) 10 mg PO HS [facility] Last Admin: 05/19/18 21:38 Dose: 10 mg Results - Vital Signs Recent Vital Signs: Last Vital Signs Temp 97.6 F 05/20/18 08:00 Pulse 64 05/20/18 08:00 Resp 20 05/20/18 08:00 BP 148/99 H 05/20/18 08:00 Pulse Ox 96 05/20/18 08:00 - Labs Result Diagrams: 05/20/18 07:50 05/20/18 07:50 Labs: Laboratory Results - last 24 hr 05/19/18 05/19/18 05/20/18 09:28 16:58 07:50 WBC 6.4 RBC 4.56 Hgb 15.3 Hct 44.3 MCV 97.3 MCH 33.7 H MCHC 34.6 RDW 13.4 Plt Count 198 MPV 8.9 Neut % (Auto) 52.7 Lymph % (Auto) 37.9 [place] % (Auto) 7.4 Eos % (Auto) 1.7 Baso % (Auto) 0.3 Neut # (Auto) 3.4 Lymph # (Auto) 2.4 [place] # (Auto) 0.5 Eos # (Auto) 0.1 Baso # (Auto) 0.0 Sodium Potassium Chloride Carbon Dioxide Anion Gap BUN Creatinine Est GFR ( Amer) Est GFR (Non-Af Amer) Random Glucose Calcium Total Bilirubin AST ALT Alkaline Phosphatase Troponin I < 0.0120 < 0.0120 Total Protein Albumin Globulin Albumin/Globulin Ratio 05/20/18 07:50 WBC RBC Hgb Hct MCV MCH MCHC RDW Plt Count MPV Neut % (Auto) Lymph % (Auto) [place] % (Auto) Eos % (Auto) Baso % (Auto) Neut # (Auto) Lymph # (Auto) [place] # (Auto) Eos # (Auto) Baso # (Auto) Sodium 136 Potassium 3.9 Chloride 102 Carbon Dioxide 27 Anion Gap 11 BUN 9 Creatinine 0.6 L Est GFR ( Amer) > 60 Est GFR (Non-Af Amer) > 60 Random Glucose 114 H Calcium 9.5 Total Bilirubin 0.7 AST 22 ALT 10 Alkaline Phosphatase 99 Troponin I Total Protein 7.5 Albumin 4.3 Globulin 3.2 Albumin/Globulin Ratio 1.4
[2018-05-20] MEDS: Enoxaparin 40 mg Syringe SC SCH (09:40)
--- NOTE | 2018-05-20 22:43 | CP.PCM.PN ---
Subjective - Date & Time of Evaluation Date of Evaluation: 05/20/18 Time of Evaluation: 09:30 - Subjective Subjective: Patient seen and evaluated Review Of Systems Cardiovascular: Positive for: Chest Pain Respiratory: Negative for: Shortness of Breath Gastrointestinal: Negative for: Abdominal Pain Musculoskeletal: Positive for: Shoulder Pain (upper left posterior; radiated from chest pain ). Negative for: Back Pain, Other (leg swelling ) Physical Exam - Physical Exam Appears: Non-toxic, No Acute Distress Skin: Normal Color, Warm, Dry Head: Atraumatic, Normacephalic Eye(s): bilateral: Normal Inspection, PERRL, EOMI Nose: Normal Oral Mucosa: Moist Neck: Trachea Midline, Supple, Other (no meningeal signs; negative kernig's and brudzinski's) Chest: Symmetrical Cardiovascular: Rhythm Regular, No Friction Rub Respiratory: No Rales, No Rhonchi, No Wheezing Gastrointestinal/Abdominal: Soft, No Tenderness Extremity: Bilateral: Atraumatic, Normal Color And Temperature, Normal ROM Neurological/Psych: Oriented x3, Normal Speech Assessment and Plan 52 F with hx of HTN, hyperlipidemia and Fhx of heart issues admitted for chest pain Stress test and ECHO tomorrow Objective - Vital Signs/Intake and Output Vital Signs (last 24 hours): Temp Pulse Resp BP Pulse Ox 97.6 F 67 20 149/96 H 98 05/20/18 08:00 05/20/18 21:00 05/20/18 21:00 05/20/18 21:00 05/20/18 21:00 - Medications Medications: Current Medications Aspirin (Ecotrin) 81 mg PO DAILY [facility] Last Admin: 05/20/18 09:39 Dose: 81 mg Enoxaparin Sodium (Lovenox) 40 mg SC DAILY [facility] Last Admin: 05/20/18 09:40 Dose: 40 mg Losartan Potassium (Cozaar) 50 mg PO DAILY [facility] Methimazole (Tapazole) 10 mg PO BID [facility] Last Admin: 05/20/18 17:15 Dose: 10 mg Pneumococcal Polyvalent Vaccine (Pneumovax 23 Vaccine) 0.5 ml IM .ONCE ONE Stop: 05/21/18 10:01 Propranolol HCl (Inderal) 20 mg PO BID [facility] Last Admin: 05/20/18 17:13 Dose: 20 mg Rosuvastatin Calcium (Crestor) 10 mg PO [facility] Last Admin: 05/20/18 21:35 Dose: 10 mg - Labs Labs: 05/20/18 07:50 05/20/18 07:50
--- NOTE | 2018-05-20 23:09 | CP.PCM.HP ---
Present on Admission - Present on Admission Any Indicators Present on Admission: No Past Patient History - Past Medical History & Family History Past Medical History?: Yes - Past Social History Smoking Status: Never Smoked - CARDIAC Hx Cardia Arrhythmia: Yes Hx Hypertension: Yes Hx Peripheral Edema: Yes - PULMONARY Hx Asthma: No Hx Bronchitis: No - ENDOCRINE/METABOLIC Hx Hyperthyroidism: Yes - MUSCULOSKELETAL/RHEUMATOLOGICAL Hx Falls: No - GASTROINTESTINAL Hx Constipation: Yes - GENITOURINARY/GYNECOLOGICAL Other/Comment: hysterectomy 1998 - PSYCHIATRIC Hx Substance Use: No - SURGICAL HISTORY Hx Surgeries: Yes Hx Hysterectomy: Yes - ANESTHESIA Hx Anesthesia: Yes Hx Anesthesia Reactions: No Meds Allergies/Adverse Reactions: Allergies Allergy/AdvReac Type Severity Reaction Status Date / Time No Known Allergies Allergy Verified 05/19/18 00:42 Results - Vital Signs Recent Vital Signs: Last Vital Signs Temp 97.6 F 05/20/18 08:00 Pulse 67 05/20/18 21:00 Resp 20 05/20/18 21:00 BP 149/96 H 05/20/18 21:00 Pulse Ox 98 05/20/18 21:00 - Labs Result Diagrams: 05/20/18 07:50 05/20/18 07:50 Labs: Laboratory Results - last 24 hr 05/20/18 05/20/18 07:50 07:50 WBC 6.4 RBC 4.56 Hgb 15.3 Hct 44.3 MCV 97.3 MCH 33.7 H MCHC 34.6 RDW 13.4 Plt Count 198 MPV 8.9 Neut % (Auto) 52.7 Lymph % (Auto) 37.9 [place] % (Auto) 7.4 Eos % (Auto) 1.7 Baso % (Auto) 0.3 Neut # (Auto) 3.4 Lymph # (Auto) 2.4 [place] # (Auto) 0.5 Eos # (Auto) 0.1 Baso # (Auto) 0.0 Sodium 136 Potassium 3.9 Chloride 102 Carbon Dioxide 27 Anion Gap 11 BUN 9 Creatinine 0.6 L Est GFR ( Amer) > 60 Est GFR (Non-Af Amer) > 60 Random Glucose 114 H Calcium 9.5 Total Bilirubin 0.7 AST 22 ALT 10 Alkaline Phosphatase 99 Total Protein 7.5 Albumin 4.3 Globulin 3.2 Albumin/Globulin Ratio 1.4
--- NOTE | 2018-05-21 06:50 | HP ---
CHIEF COMPLAINT: Chest pain. HISTORY OF PRESENT ILLNESS: This is a 52-year-old female, nonsmoker, non-ETOH user with history of hypertension, hyperthyroidism. She has someone with cardiac problems in the family who complained of chest pain for one and a half days. According to the patient, the chest pain is left upper precordial, nonradiating, not associated with diaphoresis or dizziness. According to her, the pain is worse with deep inspiration and left arm movement. According to her, she took aspirin this morning, and she is not sure this is improved. She denies any radiation pain to the left arm or back. She denies any history of cough, sore throat, or runny nose. She denies any history of dyspepsia, nausea, or vomiting. According to her, her chest pain is nonexertional. She denies any dyspnea on exertion, orthopnea, or PND. She denies any history of polyuria, polydipsia, or polyphagia. She denies any history of hematuria or pyuria. PAST MEDICAL HISTORY: Hypertension, hyperthyroidism. She also has history of cardiac arrhythmia in the past. SOCIAL HISTORY: She is nonsmoker, non-EtOH user. CURRENT MEDICATIONS: At home, she is on Inderal and Tapazole. PHYSICAL EXAMINATION: GENERAL: Middle-aged female, in no acute distress. VITAL SIGNS: Blood pressure 149/76, pulse 67, respiratory rate 20, temperature 97. SKIN: Dry. No bruises. No purpura. No petechiae. No ecchymosis. HEENT: Atraumatic and normocephalic. Negative pallor. Negative jaundice. Extraocular movements are intact. NECK: Supple. No JVD. No lymph nodes. No thyromegaly. No carotid bruits. CHEST WALL: Bilateral symmetrical expansion. No tenderness. No deformity. LUNGS: Clear. No rales. No rhonchi. CARDIOVASCULAR SYSTEM: PMI not localized. S1 and S2 regular. Tachycardic. ABDOMEN: Soft, nontender. Bowel sounds are positive. EXTREMITIES: No clubbing, cyanosis, or edema. CENTRAL NERVOUS SYSTEM: The patient is awake, alert, and oriented x3. Cranial nerves II through XII are normal. Power 5/5 x4. Plantars are downgoing. ASSESSMENT: 1. Chest pain, rule out myocardial infarction, rule out coronary artery disease, rule out cardiac arrhythmia ischemia. 2. Poorly controlled hypertension. 3. Hyperthyroidism. PLAN: Admit. Detailed orders are written. Seen and examined. Meng Jacobs MD
[2018-05-21] MEDS ORDERED: Caffeine Citrated **INJ** 20 MG/ML IV ONE (07:46)
[2018-05-21] MEDS ORDERED: Pneumococcal 23-Valent Vaccine IM ONE (10:00)
[2018-05-21] MEDS: Enoxaparin 40 mg Syringe SC SCH ×2 (11:00→13:20)
--- NOTE | 2018-05-21 22:00 | CP.PCM.PN ---
Subjective - Date & Time of Evaluation Date of Evaluation: 05/21/18 Time of Evaluation: 08:20 - Subjective Subjective: dictated Objective - Vital Signs/Intake and Output Vital Signs (last 24 hours): Temp Pulse Resp BP Pulse Ox 97.3 F L 100 H 20 164/116 H 98 05/21/18 15:20 05/21/18 16:00 05/21/18 15:20 05/21/18 15:20 05/21/18 15:20 - Medications Medications: Current Medications Aspirin (Ecotrin) 81 mg PO DAILY [facility] Last Admin: 05/21/18 13:19 Dose: 81 mg Enoxaparin Sodium (Lovenox) 40 mg SC DAILY [facility] Last Admin: 05/21/18 13:20 Dose: 40 mg Losartan Potassium (Cozaar) 50 mg PO DAILY [facility] Last Admin: 05/21/18 13:19 Dose: 50 mg Methimazole (Tapazole) 10 mg PO BID [facility] Last Admin: 05/21/18 17:43 Dose: 10 mg Propranolol HCl (Inderal) 20 mg PO BID [facility] Last Admin: 05/21/18 17:43 Dose: 20 mg Rosuvastatin Calcium (Crestor) 10 mg PO HS [facility] Last Admin: 05/21/18 21:40 Dose: 10 mg - Labs Labs: 05/20/18 07:50 05/20/18 07:50
--- NOTE | 2018-05-22 03:47 | PN ---
DATE: 05/21/2018 SUBJECTIVE: The patient, Jeanmarie, is for cardiac catheterization tomorrow. She has on and off chest pain, palpitation, weakness, and dizziness. Blood pressure is still poorly controlled. PHYSICAL EXAMINATION: VITAL SIGNS: Blood pressure 164/116, pulse 79, respiratory rate 20, temperature 97.3. LUNGS: Clear. CARDIOVASCULAR SYSTEM: S1 and S2, regular. ABDOMEN: Soft, nontender. Bowel sounds are positive. ASSESSMENT: 1. Chest pain. Rule out coronary artery disease. The patient is for cardiac catheterization. 2. Poorly controlled hypertension. 3. Hyperthyroidism. PLAN: blood pressure medication. Cardiology and cardiac cath in the a.m. Monitor the patient. Meng Jacobs MD
[2018-05-22 07:21] LABS: BASO % 0.4 % (0.0-2.0); EOS # 0.1 K/uL (0.0-0.7); EOS % 2.1 % (0.0-4.0); HEMOGLOBIN 15.1 g/dL (11.0-16.0); LYMPH # 2.4 K/uL (1.0-4.3); LYMPH % 39.4 % (20.0-40.0); MEAN CELL VOLUME 96.9 fL (81.0-99.0); MEAN CORPUSCULAR HEMOGLOBIN 33.5 pg (27.0-31.0); MEAN CORPUSCULAR HGB CONC 34.6 g/dL (33.0-37.0); MEAN PLATELET VOLUME 8.9 fL (7.2-11.7); MONO # 0.6 K/uL (0.0-0.8); MONO % 9.2 % (0.0-10.0); NEUT # 2.9 K/uL (1.8-7.0); NEUT % 48.9 % (50.0-75.0); NRBC % 0.1 % (0.0-2.0); RBC 4.52 Mil/uL (3.80-5.20); RED CELL DISTRIBUTION WIDTH 13.1 % (11.5-14.5)
[2018-05-22 07:50] LABS: INR 1.1; PROTHROMBIN TIME 12.5 SECONDS (9.7-12.2)
[2018-05-22 07:52] LABS: ALB/GLOB RATIO 1.3 (1.0-2.1); ALBUMIN 4.2 g/dL (3.5-5.0); ALT/SGPT 8 U/L (9-52); AST/SGOT 27 U/L (14-36); BLOOD UREA NITROGEN 10 mg/dL (7-17); CALCIUM 9.4 mg/dl (8.6-10.4); GFR NON-AFRICAN AMERICAN > 60
[2018-05-22 08:05] VITALS: O2SAT 96
[2018-05-22] MEDS: Enoxaparin 40 mg Syringe SC SCH (11:00)
[2018-05-22] MEDS ORDERED: Lidocaine 2% MPF (5 ml) Inj ONE (11:35)
[2018-05-22] MEDS ORDERED: Iohexol 350mg/ml 100 ML ONE ×2 (11:35→12:15)
[2018-05-22] MEDS ORDERED: Labetalol 5mg/ml (4ml) ONE (11:42)
[2018-05-22] MEDS ORDERED: Midazolam 2 MG/2 ML VIAL ONE (11:45)
--- NOTE | 2018-05-22 12:32 | CP.PCM.PN ---
Subjective - Date & Time of Evaluation Date of Evaluation: 05/22/18 Time of Evaluation: 12:31 - Subjective Subjective: Patient s/p Cath Normal Coronaries Normal EF Medical management cardiac point of view cleared for discharge after 4pm today Objective - Vital Signs/Intake and Output Vital Signs (last 24 hours): Temp Pulse Resp BP Pulse Ox 98.0 F 73 20 136/91 H 96 05/22/18 07:00 05/22/18 07:40 05/22/18 07:00 05/22/18 07:00 05/22/18 07:00 - Medications Medications: Current Medications Enoxaparin Sodium (Lovenox) 40 mg SC DAILY [facility] Last Admin: 05/22/18 11:00 Dose: Not Given Losartan Potassium (Cozaar) 50 mg PO DAILY [facility] Last Admin: 05/22/18 11:00 Dose: Not Given Methimazole (Tapazole) 10 mg PO BID [facility] Last Admin: 05/22/18 11:00 Dose: Not Given Propranolol HCl (Inderal) 20 mg PO BID [facility] Last Admin: 05/22/18 11:00 Dose: Not Given Rosuvastatin Calcium (Crestor) 10 mg PO HS [facility] Last Admin: 05/21/18 21:40 Dose: 10 mg - Labs Labs: 05/22/18 07:03 05/22/18 07:03 PT 12.5 SECONDS (9.7-12.2) H 05/22/18 07:03 INR 1.1 05/22/18 07:03 APTT 33 SECONDS (21-34) 05/22/18 07:03
[2018-05-22 14:54] VITALS: BP 130/90; TEMP 98
[2018-05-22 16:50] VITALS: PULSE 89
--- NOTE | 2018-05-22 17:02 | CP.PCM.PN ---
Subjective - Date & Time of Evaluation Date of Evaluation: 05/22/18 Time of Evaluation: 17:01 - Subjective Subjective: PATIENT SEEN AND EXAMINED AT THE BEDSIDE Objective - Vital Signs/Intake and Output Vital Signs (last 24 hours): Temp Pulse Resp BP Pulse Ox 98 F 89 20 130/90 96 05/22/18 14:50 05/22/18 16:00 05/22/18 14:50 05/22/18 14:50 05/22/18 14:50 - Medications Medications: Current Medications Enoxaparin Sodium (Lovenox) 40 mg SC DAILY [facility] Last Admin: 05/22/18 11:00 Dose: Not Given Losartan Potassium (Cozaar) 50 mg PO DAILY [facility] Last Admin: 05/22/18 11:00 Dose: Not Given Methimazole (Tapazole) 10 mg PO BID [facility] Last Admin: 05/22/18 11:00 Dose: Not Given Propranolol HCl (Inderal) 20 mg PO BID [facility] Last Admin: 05/22/18 11:00 Dose: Not Given Rosuvastatin Calcium (Crestor) 10 mg PO HS [facility] Last Admin: 05/21/18 21:40 Dose: 10 mg - Labs Labs: 05/22/18 07:03 05/22/18 07:03 PT 12.5 SECONDS (9.7-12.2) H 05/22/18 07:03 INR 1.1 05/22/18 07:03 APTT 33 SECONDS (21-34) 05/22/18 07:03 Assessment and Plan - Assessment and Plan (Free Text) Assessment: FOLLOW UP WITH DR ZHANG IN HIS OFFICE ----CALL FOR APPOINTMENT FOLLOW UP WITH DR CARRANZA IN HIS OFFICE ----CALL FOR APPOINTMENT CONTINUE HOME MEDICATION NEW PRESCRIPTION GIVEN CRESTOR 20 MG PO DAILY LOSARTAN 50 MG PO DAILY ASPIRIN 81 MG PO DAILY ACTIVITY TOLERATED CALL DR CHUN OR GO TO THE EMERGENCY ROOM IF SYMPTOM RETURN OR WORSENING
--- NOTE | 2018-05-22 21:26 | CP.PCM.DIS ---
Provider - Provider Date of Admission: 05/19/18 16:10 Attending physician: Meng Jacobs MD Consults: 05/19/18 07:00 Cardiology Consult Routine Comment: chest pain Consulting Provider: Meng Jacobs Consulting Physician: Meng Jacobs Reason for Consult: chest pain 05/19/18 13:28 Cardiology Consult Routine Comment: CHEST PAIN Consulting Provider: Nikolas Lopez Consulting Physician: Nikolas Lopez Reason for Consult: CHEST PAIN 05/19/18 21:00 Inpatient PATIENT ESCORT Core Measures Referral Routine Comment: Physician Instructions: Reason For Exam: chest pain Time Spent in preparation of Discharge (in minutes): 30 Hospital Course - Lab Results Lab Results: Most Recent Lab Values WBC 6.0 K/uL (4.8-10.8) 05/22/18 07:03 RBC 4.52 Mil/uL (3.80-5.20) 05/22/18 07:03 Hgb 15.1 g/dL (11.0-16.0) 05/22/18 07:03 Hct 43.8 % (34.0-47.0) 05/22/18 07:03 MCV 96.9 fL (81.0-99.0) 05/22/18 07:03 MCH 33.5 pg (27.0-31.0) H 05/22/18 07:03 MCHC 34.6 g/dL (33.0-37.0) 05/22/18 07:03 RDW 13.1 % (11.5-14.5) 05/22/18 07:03 Plt Count 204 K/uL (130-400) 05/22/18 07:03 MPV 8.9 fL (7.2-11.7) 05/22/18 07:03 Neut % (Auto) 48.9 % (50.0-75.0) L 05/22/18 07:03 Lymph % (Auto) 39.4 % (20.0-40.0) 05/22/18 07:03 Hardy % (Auto) 9.2 % (0.0-10.0) 05/22/18 07:03 Eos % (Auto) 2.1 % (0.0-4.0) 05/22/18 07:03 Baso % (Auto) 0.4 % (0.0-2.0) 05/22/18 07:03 Neut # (Auto) 2.9 K/uL (1.8-7.0) 05/22/18 07:03 Lymph # (Auto) 2.4 K/uL (1.0-4.3) 05/22/18 07:03 Hardy # (Auto) 0.6 K/uL (0.0-0.8) 05/22/18 07:03 Eos # (Auto) 0.1 K/uL (0.0-0.7) 05/22/18 07:03 Baso # (Auto) 0.0 K/uL (0.0-0.2) 05/22/18 07:03 PT 12.5 SECONDS (9.7-12.2) H 05/22/18 07:03 INR 1.1 05/22/18 07:03 APTT 33 SECONDS (21-34) 05/22/18 07:03 Sodium 137 mmol/L (132-148) 05/22/18 07:03 Potassium 4.0 mmol/L (3.6-5.2) 05/22/18 07:03 Chloride 101 mmol/L (98-107) 05/22/18 07:03 Carbon Dioxide 27 mmol/L (22-30) 05/22/18 07:03 Anion Gap 13 (10-20) 05/22/18 07:03 BUN 10 mg/dL (7-17) 05/22/18 07:03 Creatinine 0.6 mg/dL (0.7-1.2) L 05/22/18 07:03 Est GFR ( Amer) > 60 05/22/18 07:03 Est GFR (Non-Af Amer) > 60 05/22/18 07:03 Random Glucose 104 mg/dL (65-105) 05/22/18 07:03 Calcium 9.4 mg/dl (8.6-10.4) 05/22/18 07:03 Total Bilirubin 0.5 mg/dL (0.2-1.3) 05/22/18 07:03 AST 27 U/L (14-36) 05/22/18 07:03 ALT 8 U/L (9-52) L 05/22/18 07:03 Alkaline Phosphatase 93 U/L (38-126) 05/22/18 07:03 Troponin I < 0.0120 ng/mL (0.00-0.120) 05/19/18 16:58 Total Protein 7.5 g/dL (6.3-8.3) 05/22/18 07:03 Albumin 4.2 g/dL (3.5-5.0) 05/22/18 07:03 Globulin 3.2 gm/dL (2.2-3.9) 05/22/18 07:03 Albumin/Globulin Ratio 1.3 (1.0-2.1) 05/22/18 07:03 Beta HCG, Quant < 2.39 mIU/ML 05/22/18 07:03 Discharge Plan - Discharge Medications Prescriptions: Losartan [Cozaar] 50 mg PO DAILY #30 tab Rosuvastatin Calcium [Crestor] 10 mg PO HS 30 Days tab Aspirin [Ecotrin] 81 mg PO DAILY 30 Days tabec methIMAzole [Tapazole] 10 mg PO BID 30 Days #60 tab - Follow Up Plan Condition: STABLE Disposition: HOME/ ROUTINE Instructions: Chest Pain (DC), Aspirin, Losartan, Methimazole, Rosuvastatin Additional Instructions: FOLLOW UP WITH DR JACOBS IN HIS OFFICE ----CALL FOR APPOINTMENT FOLLOW UP WITH DR LOPEZ IN HIS OFFICE ----CALL FOR APPOINTMENT CONTINUE HOME MEDICATION NEW PRESCRIPTION GIVEN CRESTOR 20 MG PO DAILY LOSARTAN 50 MG PO DAILY ASPIRIN 81 MG PO DAILY ACTIVITY TOLERATED CALL DR JACOBS OR GO TO THE EMERGENCY ROOM IF SYMPTOM RETURN OR WORSENING SEGUIRSE CON EL DR JACOBS EN ERICKSON OFICINA ---- LLAME PARA SOLICITAR MORE PAUL SEGUIRSE CON EL DR. LOPEZ EN ERICKSON OFICINA ---- LLAME PARA SOLICITAR MORE PAUL CONTINUAR MEDICAMENTO EN CASA NUEVA RECETA SALEEM CRESTOR 20 MG PO DIARIO LOSARTAN 50 MG PO DIARIO ASPIRIN 81 MG PO DIARIO LA ACTIVIDAD NEHA TOLERADA LLAME AL DR. JACOBS O VAYA A LA MALIA DE EMERGENCIA SI EL SNTOMA DEVUELVE O CONSIDERA Referrals: Nikolas Lopez MD [Staff Provider] - Meng Jacobs MD [Staff Provider] -
--- NOTE | 2018-05-22 23:16 | CARD ---
APPROVED REPORT Date of service: 05/21/2018 EXAM: Two-dimensional and M-mode echocardiogram with Doppler and color Doppler. Other Information Quality : GoodRhythm : INDICATION Peripheral Edema Chest Pain hx of cardiac disease RISK FACTORS Hypertension 2D DIMENSIONS IVSd1.8 (0.7-1.1cm)LVDd3.2 (3.9-5.9cm) PWd1.3 (0.7-1.1cm)LA Lyxvig18 (18-58mL) LVDs2.3 (2.5-4.0cm)FS (%) 28.3 % LVEF (%)56.1 (>50%)LVEF (Moreno's)55.05 % IVC0.00 cm M-Mode DIMENSIONS Left Atrium (MM)3.11 (2.5-4.0cm)IVSd1.24 (0.7-1.1cm) Aortic Root3.01 (2.2-3.7cm)LVDd3.39 (4.0-5.6cm) Aortic Cusp Exc.2.07 (1.5-2.0cm)PWd1.44 (0.7-1.1cm) FS (%) 37 %LVDs2.13 (2.0-3.8cm) LVEF (%)65 (>50%) Mitral Valve MV E Tcxjcshh29.0cm/sMV A Hjbamiiw90.4cm/sE/A ratio0.6 TDI Lateral E' Peak V6.29cm/sMedial E' Peak V4.03cm/sE/Lateral E'6.5 E/Medial E'10.2 Tricuspid Valve TR Peak [id number]/sTR Peak Gr.01lcHgFBKQ60grCd <Conclusion> Left ventricle: thickness: mild concentric thickeningl; size: normal; overall ejection fraction: 65%: diastolic filling pressures: normal Mitral valve: annulus: normal: leaflets: normal : excursion: normal; no significant trans-mitral gradient: no significant incompetence: left atrium: normal Aortic valve: leaflets: normal: excursion: normal; no significant trans-aortic gradient: No significant incompetence: aortic root: normal Right sided Structures: Pulmonary valve: normal; no significant incompetence; Tricuspid valve: normal; mild incompetence: Intra-cardiac hemodynamics: pulmonary systolic pressures: normal; central venous pressures: normal No pericardial effusion
--- NOTE | 2018-05-23 09:18 | DS ---
DISCHARGE DIAGNOSES: 1. Noncoronary chest pain. 2. Hypertension. 3. Hyperthyroidism. HISTORY OF PRESENT ILLNESS: This is a 52-year-old female with history of hyperthyroidism, hypertension, hyperlipidemia, who was admitted with chest pain. VA was ruled out but she does have negative cardiac enzymes. She underwent stress test. possible. She underwent cardiac catheterization which is normal. CONDITION UPON DISCHARGE: Stable. She is being discharged for outpatient followup. She will be followed up by me as outpatient. Meng Jacobs MD
== END 2018-05-22 18:22 | disposition home or self-care (01) | DRG 125 ==
LOC: C.ER 00:26 → C.9E 04:57 → C.5S 06:19 → OBSVTOIN 16:10
PROVIDERS: ADMIT Internal Medicine; ATTEND Internal Medicine
PROC: 4A023N7 Measurement of Cardiac Sampling and Pressure, Left Heart, Percutaneous Approach (ICD-10-PCS; principal; 2018-05-22)
PROC: B2151ZZ Fluoroscopy of Left Heart using Low Osmolar Contrast (ICD-10-PCS; 2018-05-22)
PROC: B2111ZZ Fluoroscopy of Multiple Coronary Arteries using Low Osmolar Contrast (ICD-10-PCS; 2018-05-22)
DX: R07.89 Other chest pain (principal); E05.90 Thyrotoxicosis, unspecified without thyrotoxic crisis or storm; I10 Essential (primary) hypertension; E78.5 Hyperlipidemia, unspecified; Z79.82 Long term (current) use of aspirin; Z79.899 Other long term (current) drug therapy; Z90.710 Acquired absence of both cervix and uterus

== ENCOUNTER 2018-05-27 00:17 | Emergency (ER) | payer OTHER ==
[2018-05-27 00:33] VITALS: BP 168/91; PULSE 68; RESP 16; TEMP 98.1; O2SAT 97
[2018-05-27] MEDS ORDERED: Dexamethasone 4 mg/1 ml IM STA (00:40)
--- NOTE | 2018-05-27 06:26 | C.PDOC ---
History Of Present Illness 53-year-old female presents to the emergency department with complaints of rack to her chest and back for the past several hours. Patient states that the rash is very itchy but she denies fever or shortness of breath. Patient does not recall any new food or environment that would cause such a reaction. Time Seen by Provider: 05/27/18 00:30 Chief Complaint (Nursing): Allergic Reaction History Per: Patient History/Exam Limitations: no limitations Onset/Duration Of Symptoms: Hrs Current Symptoms Are (Timing): Still Present Possible Cause: Unknown Associated Symptoms: Skin Rash Past Medical History Reviewed: Historical Data, Nursing Documentation, Vital Signs Vital Signs: Last Vital Signs Temp 98.1 F 05/27/18 00:31 Pulse 68 05/27/18 00:31 Resp 16 05/27/18 00:31 BP 168/91 H 05/27/18 00:31 Pulse Ox 97 05/27/18 00:31 - Medical History PMH: Cardia Arrhythmia, HTN, Hyperthyroidism, Peripheral Edema Denies: Asthma, Atrial Fibrillation, Bronchitis, CHF, Mitral Valve Prolapse Surgical History: No Surg Hx Denies: Pacemaker - [facility] Procedures FLUOROSCOPY OF LEFT HEART USING LOW OSMOLAR CONTRAST (05/19/18) FLUOROSCOPY OF MULT COR ART USING L OSM CONTRAST (05/19/18) MEASURE OF CARDIAC SAMPL & PRESSURE, L HEART, PERC APPROACH (05/19/18) Family History: States: No Known Family Hx - Social History Hx Tobacco Use: No Hx Alcohol Use: No Hx Substance Use: No - Immunization History Hx Tetanus Toxoid Vaccination: Yes Hx Influenza Vaccination: Yes (2016) Hx Pneumococcal Vaccination: No Review Of Systems Except As Marked, All Systems Reviewed And Found Negative. Constitutional: Negative for: Fever, Chills Cardiovascular: Negative for: Chest Pain Respiratory: Negative for: Cough, Shortness of Breath Gastrointestinal: Negative for: Nausea, Vomiting, Abdominal Pain, Diarrhea Skin: Positive for: Rash Neurological: Negative for: Weakness, Numbness Physical Exam - Physical Exam Appears: Non-toxic, No Acute Distress Skin: Warm, Dry, Rash (maculopapular rash to chest and back) Head: Atraumatic, Normacephalic Eye(s): bilateral: Normal Inspection, PERRL, EOMI Nose: Normal Oral Mucosa: Moist Tongue: Normal Appearing, No Swelling Lips: Normal Appearing, No Swelling Throat: Normal, No Erythema, No Exudate Neck: Normal, Supple Chest: Symmetrical, No Tenderness Cardiovascular: Rhythm Regular, No Murmur Respiratory: Normal Breath Sounds, No Rales, No Rhonchi, No Stridor, No Wheezing Gastrointestinal/Abdominal: Soft, No Tenderness Extremity: Normal ROM Neurological/Psych: Oriented x3, Normal Speech, Normal Cognition ED Course And Treatment O2 Sat by Pulse Oximetry: 97 (RA) Pulse Ox Interpretation: Normal Medical Decision Making Medical Decision Making: Plan: Decadron 10mg IM Disposition - [facility] - Disposition: HOME/ ROUTINE Disposition Time: 00:40 Condition: GOOD Additional Instructions: ARNOLDO CANTU, thank you for letting us take care of you today. The emergency medical care you received today was directed at your acute symptoms. If you were prescribed any medication, please fill it and take as directed. It may take several days for your symptoms to resolve. Return to the Emergency Department if your symptoms worsen, do not improve, or if you have any other problems. Please contact your doctor or call one of the physicians/clinics you have been referred to that are listed on the Patient Visit Information form that is included in your discharge packet. Bring any paperwork you were given at discharge with you along with any medications you are taking to your follow up visit. Our treatment cannot replace ongoing medical care by a primary care provider outside of the emergency department. Thank you for allowing the [facility] team to be part of your care today. Follow up with your primary care doctor in 2-3 days for re-evaluation and further management. Return to the emergency room if you have any concerns. ARNOLDO CANTU, blanche por dejarnos cuidar de usted hoy. La atencin mdica de emergencia que recibi hoy se dirigi a sylvia sntomas agudos. Si le recetaron algn medicamento, llnelo y tmelo segn las indicaciones. Los sntomas pueden tardar varios jarquin en resolverse. Regrese al Departamento de Emergencias si sylvia sntomas empeoran, no mejoran o si tiene otros problemas. Comunquese con phan mdico o llame a dion de los mdicos / clnicas a los que valdovinos sido referido que figuran en el formulario de Informacin de visita al paciente que se incluye en phan paquete de rabia. Lleve todos los documentos que le entregaron al momento del rabia junto con todos los medicamentos que est tomando para phan visita de seguimiento. Nuestro tratamiento no puede reemplazar la atencin mdica continua por un proveedor de atencin primaria fuera del departamento de emergencias. Blanche por permitir que el equipo de [facility] sea parte de phan atencin hoy. Thuy un seguimiento con phan mdico de atencin primaria en 2-3 jarquin para kaila reevaluacin y manejo adicional. Regrese a la dung de emergencias si tiene alguna inquietud. Prescriptions: predniSONE [Prednisone] 40 mg PO DAILY #10 tab Instructions: Ke (DC) Forms: [employer] (Djiboutian) Print Language: MALAY - Clinical Impression Clinical Impression: Allergic urticaria - Scribe Statement The provider has reviewed the documentation as recorded by the Scribe (Tyrell Meyers) Provider Attestation: All medical record entries made by the Scribe were at my direction and personally dictated by me. I have reviewed the chart and agree that the record accurately reflects my personal performance of the history, physical exam, medical decision making, and the department course for this patient. I have also personally directed, reviewed, and agree with the discharge instructions and disposition.
== END 2018-05-27 01:03 | disposition home or self-care (01) ==
LOC: C.ER 00:17
DX: L50.0 Allergic urticaria (principal)
CPT/HCPCS: 96372; 99283; J1100